=== PATIENT | male | born 1990 | race Hispanic/Latino ===

== ENCOUNTER 2019-07-15 16:00 | Emergency (ER) | payer BC ==
[~2019-07-15] VITALS: Ht 180.3 cm; Wt 79.4 kg
[2019-07-15] MEDS ORDERED: SODIUM CHLORIDE FLUSH 10 ML SYR INJ PRN (16:45)
[2019-07-15] MEDS ORDERED: ZOFRAN4 MG PO (17:01)
[2019-07-15] MEDS ORDERED: PRILOSEC OTC20 MG PO (17:01)
[2019-07-15] MEDS ORDERED: MAALOX MAXIMUM355 ML PO (17:01)
[2019-07-15 17:30] VITALS: BP 123/74
== END 2019-07-15 17:23 | disposition home or self-care (01) ==
LOC: FSED 16:00
DX: R10.13 Epigastric pain (principal); R11.2 Nausea with vomiting, unspecified; K29.00 Acute gastritis without bleeding
CPT/HCPCS: 99282

== ENCOUNTER 2020-03-10 16:34 | Emergency (ER) | payer BC ==
[~2020-03-10] VITALS: Ht 180.3 cm; Wt 79.4 kg
[~2020-03-10 16:34] MED LIST: MAALOX MAXIMUM355 ML PO; PRILOSEC OTC20 MG PO; ZOFRAN4 MG PO
--- NOTE | 2020-03-10 16:48 | Emergency Department Note ---
History of Present Illnes History of Present Illness Chief Complaint: General Medicine Complaints History of Present Illness This is a 30 year old male, with no significant past medical history, who presents for evaluation of left-sided upper and lower lip swelling that started this morning, upon awakening. Patient states that initially the left side of the lower lip was swollen. As the day progressed the left side of the upper lip has also become swollen. He denies any cough, throat tightness, difficulty swallowing, chest tightness, wheezing, shortness of breath, nasal congestion, or fever. Patient only took ibuprofen for the symptoms earlier today, which was ineffective. The only new thing identified in patient's diet or personal care items was pomegranate juice, that he drank initially 2 days ago and then again yesterday. He does not drink pomegranate juice on a regular basis. Patient denies taking any medications, [id number] medication, herbal supplements, or using any new soaps, detergents, lotions, shampoos, or anything out of his usual routine, other than the pomegranate juice. Patient recalls that he has had two previous, similar episodes of swelling of the same areas of the left upper and lower lip: once in August and once in October. Both of these episodes resolved without intervention. 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 Onset (how long ago): day(s) (1) Location: left upper and lower lip Quality: swollen Radiation: Reports non-radiation Severity: moderate Onset quality: sudden Duration (how long): hour(s) (8) Timing of current episode: constant Progression: worsening Chronicity: recurrent Context: Denies recent surgery, Denies trauma/injury Relieving factors: none Exacerbating factors: none Associated symptoms: Denies chest pain, Denies cough, Denies fever/chills, Denies rash, Denies shortness of breath Treatments prior to arrival: none Risk factors: previous similar episodes; Past Medical/Family History Physician Review I have reviewed the patient's past medical and family history. Any updates have been documented here. Past Medical History Recent Fever: No Clinical Suspicion of Infectio: No New/Unexplained Change in Ment: No Past Medical History: None Past Surgical History: None Social History Smoking Cessation: Never Smoker Alcohol Use: None Any Illegal Drug Use: No TB Exposure/Symptoms: No Physically hurt or threatened: No Family History Family history of heart diseas: No Other Last Tetanus: UTD Any Pre-Existing Lines (PICC,: No Is patient up to date on immun: Yes Review of Systems Review of Systems Constitutional: Denies chills, Denies fever EENTM: Reports mouth swelling (left upper and lower lip); Denies throat pain, Denies mouth pain Cardiovascular: Denies chest pain, Denies palpitations Respiratory: Denies cough, Denies dyspnea Gastrointestinal: Denies nausea, Denies vomiting Genitourinary: Reports no symptoms Musculoskeletal: Denies joint swelling, Denies neck pain Integumentary: Denies change in color, Denies rash Neurological: Denies paresthesia, Denies tingling Psychological: Reports no symptoms Review of other systems: All other systems negative Physical Exam Related Data Allergies: Coded Allergies: No Known Allergies (Unverified , 03/10/20) Vital signs reviewed: Yes Physical Exam CONSTITUTIONAL Constitutional: Present well-developed, Present well-nourished; Absent distressed, Absent ill appearing HENT HENT: Present normocephalic, Present atraumatic, Present oropharynx clear/moist, Present nose normal, Present dentition normal, Present other (mild, but noticeable edema of left upper and lower lip; no tongue or uvula edema;); Absent nasal congestion, Absent rhinorrhea, Absent pharynx abnormal EYES Eyes: Reports PERRL, Reports conjunctivae normal NECK Neck: Present ROM normal, Present supple; Absent cervical adenopathy PULMONARY Pulmonary: Present effort normal, Present breath sounds normal CARDIOVASCULAR Cardiovascular: Present regular rhythm, Present heart sounds normal, Present capillary refill normal, Present normal rate; Absent murmur GASTROINTESTINAL Abdominal: Present soft, Present nontender, Present bowel sounds normal GENITOURINARY Genitourinary: Present exam deferred SKIN Skin: Present warm, Present dry; Absent erythema, Absent rash, Absent bruising MUSCULOSKELETAL NEUROLOGICAL Neurological: Present alert, Present oriented x 3, Present no gross motor or sensory deficits PSYCHOLOGICAL Psychological: Present mood/affect normal, Present judgement normal Assessment & Plan Medical Decision Making MDM - In addition to the prescriptions given, recommend that you take Cetirizine 10 mg - 1 tab daily, and continue until follow-up with an "Surgical Services Tech" for formal allergy testing. - Follow-up if your symptoms worsen. - Make an appointment with an "Surgical Services Tech" for formal allergy testing. - Use the Epipen, as needed, as discussed for a severe allergic reaction, and get to an ER immediately. - Benadryl 25 mg - 1 tab every 4-6 hours, as needed. Assessment & Plan Final Impression: (1) Swelling of both lips (2) Allergic reaction Depart Disposition: HOME, SELF-[facility] Meds Active Scripts [epipen] No Conflict Check, 0.3 MG IM PRN for allergic reaction, #2 APPLIC 0 Refills Prov:MEGAN QUINTANA MD 03/10/20 Famotidine (FAMOTIDINE) 20 Mg Tab, 20 MG PO DAILY, #11 TAB 1 po bid x 4 days, then 1 po daily x 3 days, then stop. Prov:MEGAN QUINTANA MD 03/10/20 Prednisone (PREDNISONE) 20 Mg Tab, 20 MG PO DAILY for 7 Days, #7 TAB 0 Refills 1 po bid x 4 days, then 1 po daily x 3 days, then stop. Prov:MEGAN QUINTANA MD 03/10/20 Mag Hydrox/Al Hydrox/Simeth (MAALOX MAXIMUM STRENGTH SUSP) 355 Ml Oral.susp, 30 ML PO Q4HR PRN for MODERATE PAIN (4-6) for 3 Days, #540 ML Prov:TAVO VALDEZ 07/15/19 Omeprazole Magnesium (PRILOSEC OTC) 20 Mg Tablet.dr, 1 TAB PO Q12H for 15 Days, #30 Prov:TAVO VALDEZ 07/15/19 Ondansetron Hcl* (ZOFRAN*) 4 Mg Tablet, 4 MG PO Q4HR PRN for NAUSEA AND VOMITING for 5 Days, #30 TAB Prov:TAVO VALDEZ 07/15/19 MEGAN QUINTANA MD Mar 10, 2020 16:48
[2020-03-10] MEDS ORDERED: FAMOTIDINE 20 MG/2 ML VIAL IV STA (17:06)
[2020-03-10] MEDS ORDERED: SODIUM CHLORIDE 0.9% 500ML 500 ML ONE (17:13)
[2020-03-10] MEDS ORDERED: FAMOTIDINE 20 MG/2 ML VIAL IV ONE (17:13)
[2020-03-10] MEDS ORDERED: METHYLPREDNISOLONE SOD SUCC 125 MG/2ML VIAL ONE (17:14)
[2020-03-10] MEDS ORDERED: SODIUM CHLORIDE 0.9% 500ML 500 ML IV ONE (17:15)
[2020-03-10] MEDS ORDERED: DIPHENHYDRAMINE HCL INJ 50 MG/ML VIAL IV ONE (17:15)
[2020-03-10] MEDS ORDERED: DIPHENHYDRAMINE HCL INJ 50 MG/ML VIAL ONE (17:15)
[2020-03-10] MEDS ORDERED: METHYLPREDNISOLONE SOD SUCC 125 MG/2ML VIAL IV ONE (17:15)
--- OUTSIDE RECORDS SUMMARY | 2020-03-10 17:18 | XMS REPORT | Continuity of Care Document ---
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 [place] [place] Problems This patient has no known problems. Allergies, Adverse Reactions, Alerts This patient has no known allergies or adverse reactions. Medications Ordered Medication Name Filled Medication Name Start Date Stop Da te Current Medication? Ordering Clinician Indication Dosage Frequency Signature (SIG) Comments Components Source Mag Hydrox/Al Hydrox/Simeth (Maalox Maximum Strength S snf) 355 Ml Oral.susp Mag Hydrox/Al Hydrox/Simeth (Maalox Maximum Strength Susp) 355 Ml Oral.susp 2019-07-15 00:00:00 Yes Judd Quevedo 30 Every 4 Hours as needed for Moderate Pain (4-6) [facility] Omeprazole Magnesium (Prilosec Otc) 20 Mg Tablet.dr Mccormick eprazole Magnesium (Prilosec Otc) 20 Mg Tablet. 2019-07-15 00:00:00 Yes Judd Quevedo 1 Every 12 Hours [facility] Ondansetron Hcl (Zofran*) 4 Mg Tablet Ondansetron Hcl (Zofra n*) 4 Mg Tablet 2019-07-15 00:00:00 Yes Judd Quevedo 4 Every 4 Hours as needed for Nausea And Vomiting [facility] Procedures This patient has no known procedures. Encounters Start Date/Time End Date/Time Encounter Type Admission Type [facility] Care Department Encounter ID Source 2019-07-15 16:00:00 2019-07-15 17:23:00 Departed Emergency Room [facility] [id number] [facility] Results This patient has no known results.
[2020-03-10] MEDS ORDERED: PREDNISONE20 MG PO (18:31)
[2020-03-10] MEDS ORDERED: FAMOTIDINE20 MG PO (18:34)
[2020-03-10] MEDS ORDERED: epipen IM (18:44)
== END 2020-03-10 19:01 | disposition home or self-care (01) ==
LOC: FSED 16:55
DX: R60.9 Edema, unspecified (principal); T78.40XA Allergy, unspecified, initial encounter
CPT/HCPCS: 99284; J1200; J2930; J7040